=== PATIENT | male | born 1995 | race Caucasian/White ===

== ENCOUNTER 2017-01-31 20:27 | Emergency (ER) | payer OTHER ==
[2017-01-31] MEDS ORDERED: NO HOME MEDICATION XX (20:53)
== END 2017-01-31 22:23 ==
LOC: EDMED 20:27
PROC: 0HQGXZZ Repair Left Hand Skin, External Approach (ICD-10-PCS; principal; 2017-01-31)
DX: S61.012A Laceration without foreign body of left thumb without damage to nail, initial encounter (principal); W26.0XXA Contact with knife, initial encounter; Y92.019 Unspecified place in single-family (private) house as the place of occurrence of the external cause